=== PATIENT | male | born 1965 | race Caucasian/White ===

== ENCOUNTER 2017-09-14 08:35 | Emergency (ER) | payer OTHER ==
[2017-09-14 08:51] VITALS: BP 132/82
--- NOTE | 2017-09-14 10:16 | UC ---
Back Pain HPI - HPI Summary HPI Summary: PULLING ON A FIRE HOSE YESTERDAY MORNING AT WORK WHEN THE HOSE GOT STUCK AND JOLTED PT'S BODY. NOW HAS LOW BACK PAIN AND LEFT SHOULDER PAIN. TOOK 2 ALEVE WHICH HELPED. NO NUMBNESS, TINGLING OR SADDLE ANESTHESIA. - History of Current Complaint Chief Complaint: UCBackPain Stated Complaint: BACK AND SHOULDER INJURY Time Seen by Provider: 09/14/17 09:58 Hx Obtained From: Patient Onset/Duration: Sudden Onset, Lasting Days - 1 DAY, Still Present Timing: Constant Severity Initially: Moderate Severity Currently: Moderate Pain Intensity: 5 Pain Scale Used: 0-10 Numeric Character: Sharp Aggravating Factor(s): Movement Alleviating Factor(s): Rest, Position Associated Signs And Symptoms: Negative: Swelling, Redness, Bruising, Fever, Weakness, Numbness, Bladder Incontinence, Bowel Incontinence, Pain with Weight Bearing - Allergies/Home Medications Allergies/Adverse Reactions: Allergies Allergy/AdvReac Type Severity Reaction Status Date / Time No Known Allergies Allergy Verified 09/14/17 08:50 Home Medications: Home Medications Naproxen Sodium [Aleve] 440 mg PO BID PRN 09/14/17 [History Confirmed 09/14/17] Omeprazole CAP* [Prilosec CAP* 20 MG] 20 mg PO BEDTIME 09/14/17 [History Confirmed 09/14/17] Zolpidem TAB* [Ambien*] 5 mg PO BEDTIME PRN 09/14/17 [History Confirmed 09/14/17 ] PMH/Surg Hx/FS Hx/Imm Hx Previously Healthy: Yes - Surgical History Surgical History: Yes Surgery Procedure, Year, and Place: HERNIA. 3 HAND SURGERYS WITH SCREWS IN RT HAND - Family History Known Family History: Positive: Hypertension - Social History Alcohol Use: Occasionally Substance Use Type: None Smoking Status (MU): Former Smoker Review of Systems Constitutional: Negative Skin: Negative Respiratory: Negative Cardiovascular: Negative Gastrointestinal: Negative Musculoskeletal: Arthralgia, Decreased ROM, Myalgia All Other Systems Reviewed And Are Negative: Yes Physical Exam Triage Information Reviewed: Yes Appearance: Well-Appearing, Well-Nourished, Pain Distress - MODERATE Vital Signs: Initial Vital Signs Temp 98.2 F 09/14/17 08:37 Pulse 63 09/14/17 08:37 Resp 16 09/14/17 08:37 BP 132/82 09/14/17 08:37 Pulse Ox 98 09/14/17 08:37 Vital Signs Reviewed: Yes Eyes: Positive: Conjunctiva Clear ENT: Positive: Hearing grossly normal Neck: Positive: Supple Respiratory: Positive: No respiratory distress, No accessory muscle use Cardiovascular: Positive: Pulses Normal Abdomen Description: Positive: Soft Musculoskeletal: Positive: No Edema, ROM Limited @ - LEFT SHOULDER, BACK, Other : - NOT TENDER OVER LOW BACK. MILDLY TENDER OVER LEFT POSTERIOR SHOULDER. NEG EMPTY CAN, TURNER, CROSS ARM TESTS Neurological: Positive: Alert Psychological: Positive: Age Appropriate Behavior Skin: Negative: rashes Back Pain Course/Dx - Differential Dx/Diagnosis Provider Diagnoses: 1. ACUTE LOW BACK STRAIN. 2. LEFT SHOULDER SPRAIN Discharge - Discharge Plan Condition: Stable Disposition: HOME Prescriptions: Cyclobenzaprine TAB* [Flexeril TAB*] 10 mg PO BID PRN #30 tab PRN Reason: Pain Patient Education Materials: Low Back Strain (ED), Shoulder Sprain (ED) Forms: *Work Release Referrals: Steven Murdock MD [Medical Doctor] - If Needed Tim PADILLA,Shay Cameron [Medical Doctor] - If Needed Additional Instructions: YOUR SYMPTOMS SHOULD IMPROVE SIGNIFICANTLY OVER THE NEXT 1-2 WEEKS. IF YOU DO NOT IMPROVE EXPECTED FOLLOW-UP WITH YOUR PCP OR ORTHO. YOU MAY BENEFIT FROM IMAGING. PHYSICAL THERAPY REFERRAL ALSO PROVIDED FOR YOU TO USE IF DESIRED. REST. CONTINUE TO TAKE 2 OTC ALEVE TWICE DAILY NEEDED FOR DISCOMFORT. TAKE MUSCLE RELAXER BEFORE BED. SLING NEEDED FOR SUPPORT. BE SURE TO GO THROUGH SLOW RANGE OF MOTION AND STRETCHING EXERCISES DAILY YOU ARE ABLE TO PREVENT STIFFENING UP AND MAKING THE DISCOMFORT WORSE.
== END 2017-09-14 10:25 | disposition home or self-care (01) ==
LOC: UCEAST 08:35
DX: S39.012A Strain of muscle, fascia and tendon of lower back, initial encounter (principal); S43.402A Unspecified sprain of left shoulder joint, initial encounter; Z87.891 Personal history of nicotine dependence; X50.0XXA Overexertion from strenuous movement or load, initial encounter; Y93.89 Activity, other specified; Y92.9 Unspecified place or not applicable
CPT/HCPCS: 99213; G0463

== ENCOUNTER 2017-12-10 07:44 | Day surgery (SDC) | payer OTHER ==
[~2017-12-10 07:44] MED LIST: Buffered Lidocaine 0.9% SYRIN* 5 ML/SYR SYRINGE INTRADERM ONE; Famotidine IV* 10 MG/ML 2 ML (20 mg) IV ONE
[2017-12-10] MEDS ORDERED: Famotidine IV* 10 MG/ML 2 ML (20 mg) ONE (08:03)
[2017-12-10] MEDS ORDERED: Silver Sulfadiazine 1%* 20 GM ONE (08:48)
[2017-12-10] MEDS ORDERED: Bupivacaine 0.25% SDV* 30 ML ONE (08:48)
[2017-12-10] MEDS ORDERED: Lidocain 1% EPI 1:100,000 * 30 ML MDV ONE (08:48)
[2017-12-10] MEDS ORDERED: Lidocaine 1% INJ* 10 MG/ML 30 ML SDV ONE (08:48)
[2017-12-10] MEDS ORDERED: fentaNYL* 50 MCG/ML 2 ML VIAL (100 MCG VIAL) ONE (09:01)
[2017-12-10] MEDS ORDERED: Midazolam* 1 MG/ML 5 ML VIAL (5 MG) ONE (09:01)
[2017-12-10] MEDS ORDERED: Ondansetron INJ* 2 MG/ML VIAL ONE (09:06)
[2017-12-10] MEDS ORDERED: Lidocaine 2% PF * 5 ML VIAL ONE (09:06)
[2017-12-10] MEDS ORDERED: Ketorolac INJ* 30 MG/ML 1 ML VIAL ONE (09:06)
[2017-12-10] MEDS ORDERED: Propofol* 10 MG/ML 20 ML BTL IV PUSH ONE (09:06)
[2017-12-10] MEDS ORDERED: Midazolam* 1 MG/ML 2 ML VIAL (2 MG) ONE (09:26)
[2017-12-10] MEDS ORDERED: Naloxone* 0.4 MG/ML 1 ML VIAL IV PRN (09:49)
[2017-12-10] MEDS ORDERED: Acetaminophen TAB* 325 MG PO PRN (09:49)
[2017-12-10] MEDS ORDERED: DiMENhydriNATE IV* 50 MG/ML VIAL IV PUSH PRN (09:49)
[2017-12-10 11:00] VITALS: BP 107/66
--- NOTE | 2017-12-11 09:28 | OP ---
DATE OF OPERATION: 12/10/17 - [facility] DATE OF : 63 SURGEON: Darien Hilario DPM PRE-OP DIAGNOSIS: Right and left foot plantar warts. POST-OP DIAGNOSIS: Right and left foot plantar warts. OPERATIVE PROCEDURE: CO laser ablation and curettage of right and left foot plantar warts. ANESTHESIA: MAC local. ESTIMATED BLOOD LOSS: Less than 10 cc. IV FLUIDS: LR 1000 cc. DRAINS: None. SPECIMENS: Plantar wart sent to Pathology. DESCRIPTION OF PROCEDURE: The patient was taken to the operating room and was placed in the supine position. Time-out was called and OR team agreed. The right and left foot were then blocked with 12 cc of 1% lidocaine with epinephrine. The foot was then prepped and draped in a sterile manner. The right and left foot were then exsanguinated with an Esmarch bandage and the cuff was then inflated to 250 mmHg. Attention was then paid to the right foot plantar aspect where I see some plantar warts. One was localized submet 3 with a size of 0.5 cm, submet 5 with a size of 0.3 cm, the lateral arch has size of 3.6 cm and heel has size of 1.6 cm. I then proceeded to perform laser ablation and curettage. The laser was set at 10 [place] and due to the fact that the laser today needed much more power, but I was able to properly ablate it and curettage it out with an aggregate size of 4.[address] above the margins to ensure all the infected tissue was removed. Attention was then paid to the left foot where I proceeded to do the same procedure. CO2 laser ablation set at continuous pattern set at 10 [address]. The submet 3 has a size of 0.3 and 0.2 cm and the heel has a size of 2.1 cm with aggregate size of 3.[address] above the margins. This completed the procedure. The cuff was then deflated and the foot was then placed in a dry sterile dressing. The patient tolerated the procedure well and was discharged in stable condition. I will see him in the office in 3 days. [id number]/[facility] #: [id number] JULIA
== END 2017-12-10 11:00 | disposition home or self-care (01) ==
LOC: OREAST 07:44
PROVIDERS: ATTEND Podiatrist
DX: B07.0 Plantar wart (principal)
CPT/HCPCS: 88305; A9270-GY; J1885; J2250; J2405; J2704; J3010